=== PATIENT | female | born 1970 | race American Indian/Alaskan Native ===

== ENCOUNTER 2020-09-21 11:15 | Outpatient (CLI) | payer OTHER ==
--- NOTE | 2020-09-21 12:27 | XRay Report ---
LEFT KNEE 3 VIEWS INDICATION: PAIN IN LEFT KNEE. COMPARISON: None. IMPRESSION: No acute osseous or soft tissue abnormality. Mild medial compartment joint space narr owing and mild retropatellar spurring are identified. Signer Name: Homero Hartman Jr, MD Signed: 09/21/2020 12:21 PM Workstation Name: [id number]
== END 2020-09-21 11:16 | disposition home or self-care (01) ==
LOC: XRAY 11:15
PROVIDERS: ATTEND Orthopaedic Surgery
DX: M76.892 Other specified enthesopathies of left lower limb, excluding foot (principal); M25.562 Pain in left knee